=== PATIENT | male | born 1950 | race Caucasian/White ===

== ENCOUNTER 2018-04-07 05:08 | Observation (INO) ==
--- NOTE | 2018-03-31 14:33 | PAT Medication Instructions ---
Medication Instructions Date of Service March 31, 2018 Home Medications dutasteride [Avodart] 0.5 mg PO QAM emtricitabine [Emtriva] 200 mg PO QAM etravirine [Intelence] 100 mg PO BID hydrochlorothiazide 25 mg PO QAM psyllium 1 tbsp PO HS raltegravir [Isentress] 400 mg PO BID solifenacin [Vesicare] 10 mg PO QAM sulindac 200 mg PO BID terazosin 5 mg PO HS ASK your surgeon for instructions sulindac 200 mg PO BID ASK your prescriber and surgeon emtricitabine [Emtriva] 200 mg PO QAM etravirine [Intelence] 100 mg PO BID raltegravir [Isentress] 400 mg PO BID DO NOT take the morning of surgery hydrochlorothiazide 25 mg PO QAM Take morning of surgery With a small sip of water, OTHERWISE NOTHING TO EAT OR DRINK AFTER MIDNIGHT: dutasteride [Avodart] 0.5 mg PO QAM solifenacin [Vesicare] 10 mg PO QAM Take evening before surgery psyllium 1 tbsp PO HS terazosin 5 mg PO HS Other Notes If you have any questions please call us at [phone] or [phone] or [phone] or [phone]
--- NOTE | 2018-03-31 16:03 | Anesthesiology Consultation ---
Date of Service March 31, 2018 Assessment & Plan Plan: - Mivacurium allergy of hives per records-- patient denies Chart Review Chart Review: Acceptable Risk for Surgery and Patient seen in Pre Admission Testing Teaching & Discussion Pre-Anesthesia Teaching/Discussion Notes: Instructed NPO after midnight before surgery,except medications with 15 cc of water. Medication instructions provided according to the PAT guidelines. History Surgery Operation Date: 04/07/18 07:15 Proposed Procedures p Transurethral Resection Prostate - Yohan Belle II, DO Height/Weight Height: 5 ft 9 in Weight: 85.4 kg Allergies Allergy/AdvReac Type Severity Reaction Status Date / Time Penicillins Allergy Mild HIVES Verified 03/28/18 12:19 erythromycin base Allergy Unknown Hives Verified 03/28/18 12:19 mivacurium Allergy HIVES PER Verified 03/31/18 16:08 RECORDS- PATIENT DENIES nabumetone AdvReac Unknown UNKNOWN Verified 03/28/18 12:19 DISPERMOX AdvReac Unknown UNKNOWN Uncoded 01/11/14 18:20 Medications Home Medications Medication Instructions Recorded Confirmed Last Taken dutasteride [Avodart] 0.5 mg PO QAM 03/28/18 03/28/18 Unknown emtricitabine [Emtriva] 200 mg PO QAM 03/28/18 03/28/18 Unknown etravirine [Intelence] 100 mg PO BID 03/28/18 03/28/18 Unknown hydrochlorothiazide 25 mg PO QAM 03/28/18 03/28/18 Unknown psyllium 1 tbsp PO HS 03/28/18 03/28/18 Unknown raltegravir [Isentress] 400 mg PO BID 03/28/18 03/28/18 Unknown solifenacin [Vesicare] 10 mg PO QAM 03/28/18 03/28/18 Unknown sulindac 200 mg PO BID 03/28/18 03/28/18 Unknown terazosin 5 mg PO HS 03/28/18 03/28/18 Unknown Past Family History Family History Brother Family history of diabetes mellitus Sister Family history of diabetes mellitus Father Family history of diabetes mellitus Past Anesthesia History No Hx of Anesthesia Complications and No Family Hx of Anesthesia Complications Mivacurium reaction of hives per records-- patient denies History of PONV No Motion Sickness Screening History of Motion Sickness: No Social History Smoking Status: Former smoker Smoking End Date: QUIT 30 YEARS AGO Hx Alcohol Use: Yes Alcohol type: wine alcohol intake frequency: holidays/special occasions only Hx Substance Use: No Substance Use Type Other:: REMOTE HX COCAINE ABUSE 30 YEARS AGO Exercise / Class Metabolic Activity II 4-5 Yardwork/Stairs/Walk up hill Review of Systems Patient denies chest pain, shortness of breath, dyspnea on exertion, cough, wheezing, palpitations. Physical Exam Vital Signs VITALS BP 131/86 P 75 TEMP 97.6 SP02 98%RA RESP 18 Full neck and c-spine range of motion. Full TMJ range of motion. TMD 3 finger breaths Mallampati Score 1 Dentition: upper front cap; poor dentition Lungs: clear throughout to auscultation Cardiac: regular rate and rhythm, no murmurs noted Spine: normal Carotid arteries: negative bruit Extremities: no edema Testing Electrocardiogram Date: 03/31/18 Findings: + NSR @ (70) Chest X-Ray Date: 03/31/18 Findings: + NAD Laboratory Results 03/31/18 16:19 03/31/18 16:19 Urine Color Yellow 03/31/18 16:19 Urine Appearance Clear (Clear) 03/31/18 16:19 Urine pH 5.0 (4.5-7.5) 03/31/18 16:19 Ur Specific [place] 1.018 (1.000-1.030) 03/31/18 16:19 Urine Protein Negative (Negative) 03/31/18 16:19 Urine Glucose (UA) Negative (Negative) 03/31/18 16:19 Urine Ketones Negative (Negative) 03/31/18 16:19 Urine Nitrite Negative (Negative) 03/31/18 16:19 Ur Leukocyte Esterase Negative (Negative) 03/31/18 16:19
--- NOTE | 2018-03-31 17:05 | XRay Report ---
XR chest Pre-admission PA/Lat HISTORY: 67 years-old Male pat preoperative exam. No acute chest complaints COMPARISON: Chest radiograph 03/03/2015 TECHNIQUE: PA and lateral views of the chest FINDINGS: Cardiomediastinal and hilar silhouettes are within normal limits. No pneumothorax, pleural effusion, focal airspace consolidation or overt pulmonary edema. Degenerative changes of the shoulders and spin e. IMPRESSION: No acute process. The above report was generated using voice recognition software. It may contain grammatical, syntax o r spelling errors. Electronically signed by: Darrell Pearce M.D. 03/31/2018 5:04 PM
[2018-03-31 17:19] LABS: Appearance Urine Clear (Clear); Bilirubin Urine Negative (Negative); Color Urine Yellow; Glucose Urine UA Negative (Negative); Ketones Urine Negative (Negative); Leukocyte Esterase Urine Negative (Negative); Nitrite Urine Negative (Negative); Protein Urine Negative (Negative); Specific Gravity Urine 1.018 (1.000-1.030); Urobilinogen Urine Negative (Negative)
[2018-03-31 17:44] LABS: Basophils # (auto) 0.01 K/uL (0-0.2); Basophils % (auto) 0.2 %; Eosinophils # (auto) 0.07 K/uL (0-0.5); Eosinophils % (auto) 1.1 %; Hematocrit (blood only) 44.6 % (42-52); Hemoglobin 15.7 g/dL (14.0-18.0); Immature Granulocytes # (auto) 0.01 K/uL (0.00-0.02); Immature Granulocytes % (auto) 0.2 %; Lymphocytes # (auto) 1.76 K/uL (1.2-3.4); Lymphocytes % (auto) 28.4 %; Mean Corpuscular Hgb Conc 35.2 g/dL (32-36); Mean Corpuscular Volume 94.1 fL (80-100); Mean Platelet Volume 12.3 fL (7.4-10.4); Monocytes # (auto) 0.33 K/uL (0.11-0.59); Monocytes % (auto) 5.3 %; Neutrophils # (auto) 4.02 K/uL (1.4-6.5); Neutrophils % (auto) 64.8 %; Platelet Count 194 K/uL (130-400); RDW Coefficient of Variation 12.6 % (11.5-14.5); RDW Standard Deviation 43.4 fL (36.4-46.3); Red Blood Count 4.74 M/uL (4.7-6.1)
[2018-03-31 17:53] LABS: Calcium 8.5 mg/dl (8.5-10.1); Creatinine Clr Calc Pharmacy 76.3 ml/min; Est GFR (African American) 89.7; Est GFR (Non-African American) 77.4; Potassium 3.6 mmol/L (3.5-5.1)
[2018-04-07] MEDS ORDERED: LR 15ML/HR IV SCH (06:00)
[2018-04-07] MEDS ORDERED: CEFAZOLIN 2000MG 2,000 MG/15 ML SYR IV SCH (06:00)
[2018-04-07] MEDS ORDERED: LIDOCAINE HCL 2% 2 ML VIAL/AMP(20MG/ML) INFIL ONE (06:48)
[2018-04-07] MEDS ORDERED: PROPOFOL IV EMULSION 10 MG/ML 20 ML VIAL IV ONE (06:48)
[2018-04-07] MEDS ORDERED: ONDANSETRON INJ 2 MG/ML 2 ML VIAL ONE (06:48)
[2018-04-07] MEDS ORDERED: raNITIdine HCl 25 MG/ML VIAL ONE (06:48)
[2018-04-07] MEDS ORDERED: fentaNYL citrate 100 MCG/2 ML VIAL ONE (06:49)
[2018-04-07] MEDS ORDERED: MIDAZOLAM HCL 1 MG/ML 2ML VIAL ONE (06:49)
--- NOTE | 2018-04-07 06:52 | History & Physical Bridge Note ---
Date of Service April 07, 2018 History & Physical Bridge Note I have examined the patient, reviewed the History & Physical and in the interval since the performance of the History & Physical I have noted the following changes of clinical significance: no changes noted
[2018-04-07] MEDS ORDERED: MoRPHine SULFATE 2 MG/ML CARP IV PRN (06:55)
[2018-04-07] MEDS ORDERED: ONDANSETRON INJ 2 MG/ML 2 ML VIAL IV PRN ×2 (06:55→07:09)
[2018-04-07] MEDS ORDERED: OXYCODONE/ACETAMINOPHEN 5mg/325mg TAB PO PRN (06:55)
[2018-04-07] MEDS ORDERED: HYDROmorphone INJ 1 MG/ML SYRINGE IV PRN (07:09)
[2018-04-07] MEDS ORDERED: ePHEDrine sulfate 50 MG/ML AMP IV PRN (07:09)
[2018-04-07] MEDS ORDERED: ATROPINE SULFATE 0.1 MG/ML 10ML SYR IV PRN (07:09)
[2018-04-07] MEDS ORDERED: BELLADONNA/OPIUM SUPP 60 MG SUPP PR ONE (07:25)
[2018-04-07] MEDS: fentaNYL citrate 100 MCG/2 ML VIAL IV PRN ×2 (08:46→08:57)
--- NOTE | 2018-04-07 08:46 | Operative Report ---
Post Operative Report Pre & Post Diagnosis Operation Date: 04/07/18 07:15 Pre-Op Diagnosis: Benign Prostatic Hyperplasia with Urinary Obstruct Post-Op Diagnosis: Benign Prostatic Hyperplasia with Urinary Obstruct Procedure Operation Date: 04/07/18 07:15 Actual Procedures p Transurethral Resection Prostate(Not Applicable) - Yohan Belle II, DO Surgeon Yohan Belle, II, DO Audio Production Manager None Estimated Blood Loss 8 Findings Consistent with Post-Op Diagnosis Large median lobe of prostate very prominent on right with obstruction. Specimens Prostate resection chips Drains [address] Anesthesia Type General Complications none Disposition Disposition: Recovery Room Indications Large obstruction of bladder secondary to large median lobe with long history of bladder/lower urinary issues. Risks and benefits discussed. Description of Procedure Patient was consented and brought back to the operating room. Patient was placed under anesthesia in the supine position and moved to the dorsal lithotomy position. Patient was prepped and draped in the regular sterile fashion. A time out was completed. A 30degree Cystoscope was placed into the bladder and the entire bladder was examined. The UO's were identified. The entire prostate and bladder neck was assessed. The important landmarks such as the veru and bladder neck were assessed. The resection scope was then placed with a bipolar loop. The 5 and 7 o'clock positions were assessed and resection was taken to form a channel at each area back to the veru. The channel created, the resection was taken over the median lobe to create a good working channel. The bulk of the median lobe was removed. All bleeding was controlled with cautery. At this point, resection was taken down to the capsule at the 11 o'clock position and resection was moved countclockwise down to the 7 o'clock position. This was repeated on the left frm the 1 o'clock to the 5 o'clock. The anterior prostatic channel was assessed and some resection completed. Bleeding was controlled the entire process. The excess resected tissues were removed and sent for analysis. A final assessment was completed. NO bleeding or residual excess adenoma was appreciated. The scope was removed. A [address] catheter was placed and set to irrigation. Good drainage was appreciated. The patient was cleaned, aroused from anesthesia , and transferred to the pacu in stable condition having tolerated the procedure well with no complications. I was present and participated in all aspects of the procedure. The patient will be monitored in the PACU until transferred. I attest to the content of the Intraoperative Record and any orders documented therein. Any exceptions are noted below.
--- NOTE | 2018-04-07 09:10 | Anesthesiology Progress Note ---
Date of Service April 07, 2018 Anesthesia Post Procedure Vital Signs Vital Signs: Temp Pulse Pulse Resp BP BP Pulse Ox 04/07/18 09:05 75 17 148/97 H 98 04/07/18 08:55 72 14 158/100 H 99 04/07/18 08:45 75 16 166/97 H 98 04/07/18 08:36 36.7 C 79 24 145/101 H 100 04/07/18 05:42 36.6 C 84 18 167/101 H 100 Pain Intensity Penis: Pain Intensity: 3 Notes Mental Status: alert / awake / arousable and participated in evaluation Patient Amnestic to Procedure: Yes Nausea / Vomiting: adequately controlled Pain: adequately controlled Airway Patency, RR, SpO2: stable & adequate BP & HR: stable & adequate Hydration State: stable & adequate Anesthetic Complications: no major complications apparent and Pt Satisfied with anesthetic care
[2018-04-07] MEDS: SODIUM CHLORIDE 0.9% 1000ML 1,000 ML IV SCH ×2 (10:27→20:41)
[2018-04-07] MEDS ORDERED: OXYBUTYNIN CHLORIDE 5 MG TAB PO PRN (10:47)
[2018-04-07] MEDS: SULINDAC 200 MG TAB PO SCH ×2 (11:53→20:42)
[2018-04-07] MEDS: hydroCHLOROthiazide 25 MG TAB PO SCH (11:53)
[2018-04-07] MEDS: DOCUSATE SODIUM 100 MG CAP PO SCH ×2 (11:54→20:42)
[2018-04-07] MEDS: RALTEGRAVIR POTASSIUM 400 MG TAB PO SCH ×2 (11:54→20:41)
[2018-04-07] MEDS: HYDROCODONE/ACETAMOPHEN 5/325MG TAB PO PRN ×2 (12:36→19:29)
[2018-04-07] MEDS: ETRAVIRINE PO SCH ×2 (13:35→20:43)
[2018-04-07] MEDS: EMTRICITABINE 200 MG PO SCH (13:36)
[2018-04-07] MEDS: CEFAZOLIN 2000MG 2,000 MG/15 ML SYR IV SCH ×2 (14:37→22:16)
[2018-04-07 14:50] LABS: Hematocrit (blood only) 42.8 % (42-52); Hemoglobin 15.2 g/dL (14.0-18.0); Mean Corpuscular Hgb Conc 35.5 g/dL (32-36); Mean Corpuscular Volume 94.1 fL (80-100); Mean Platelet Volume 11.3 fL (7.4-10.4); Platelet Count 170 K/uL (130-400); RDW Coefficient of Variation 12.5 % (11.5-14.5); Red Blood Count 4.55 M/uL (4.7-6.1); White Blood Count 5.91 K/uL (4.8-10.8)
[2018-04-07 15:30] LABS: Albumin Level 3.6 gm/dl (3.4-5.0); BUN Creatinine Ratio 14.8 (10-20); Bilirubin,Total 0.6 mg/dl (0.2-1); Calcium 7.9 mg/dl (8.5-10.1); Est GFR (African American) 87.6; Est GFR (Non-African American) 75.5; Potassium 3.6 mmol/L (3.5-5.1)
[2018-04-07 15:32] LABS: Albumin Globulin Ratio 1.1 (0.9-2); Globulin 3.3 gm/dl (2.5-4.0); Total Protein 6.9 gm/dl (6.4-8.2)
[2018-04-07] MEDS ORDERED: LORATADINE 10 MG TAB PO ONE (17:01)
[2018-04-07] MEDS ORDERED: LORazepam 0.5 MG TAB PO PRN (17:02)
[2018-04-07] MEDS ORDERED: TERAZOSIN HCL 5 MG CAP PO SCH (21:00)
[2018-04-07] MEDS ORDERED: PSYLLIUM 58.6% POWDER PACKET PO SCH (21:00)
[2018-04-08] MEDS: CEFAZOLIN 2000MG 2,000 MG/15 ML SYR IV SCH (06:28)
[2018-04-08] MEDS: HYDROCODONE/ACETAMOPHEN 5/325MG TAB PO PRN ×2 (06:43→12:29)
--- NOTE | 2018-04-08 08:46 | Anesthesiology Progress Note ---
Date of Service April 08, 2018 Anesthesia Post Procedure Vital Signs Vital Signs: Temp Pulse Pulse Resp BP Pulse Ox 04/08/18 07:49 36.4 C L 73 18 146/93 H 97 04/08/18 03:00 36.8 C 64 18 147/87 H 96 04/07/18 23:16 36.9 C 57 L 18 144/85 H 97 04/07/18 20:40 62 18 153/89 H 97 04/07/18 15:16 36.2 C L 65 18 147/90 H 98 04/07/18 12:52 69 16 151/91 H 98 04/07/18 11:28 65 16 153/92 H 98 04/07/18 10:30 36.4 C L 69 16 151/88 H 98 04/07/18 10:02 36.4 C L 61 16 155/94 H 94 04/07/18 09:30 36.3 C L 69 18 153/99 H 97 04/07/18 09:15 36.2 C L 71 19 149/97 H 99 04/07/18 09:05 75 17 148/97 H 98 04/07/18 08:55 72 14 158/100 H 99 Pain Intensity Penis: Pain Intensity: 4 Notes Mental Status: alert / awake / arousable Patient Amnestic to Procedure: Yes Nausea / Vomiting: adequately controlled Pain: adequately controlled Airway Patency, RR, SpO2: stable & adequate BP & HR: stable & adequate Hydration State: stable & adequate Anesthetic Complications: no major complications apparent
[2018-04-08] MEDS: hydroCHLOROthiazide 25 MG TAB PO SCH (09:24)
[2018-04-08] MEDS: RALTEGRAVIR POTASSIUM 400 MG TAB PO SCH (09:24)
[2018-04-08] MEDS: SULINDAC 200 MG TAB PO SCH (09:24)
[2018-04-08] MEDS: ETRAVIRINE PO SCH (09:25)
[2018-04-08] MEDS: DOCUSATE SODIUM 100 MG CAP PO SCH (09:25)
[2018-04-08] MEDS: EMTRICITABINE 200 MG PO SCH (09:25)
[2018-04-08] MEDS: SODIUM CHLORIDE 0.9% 1000ML 1,000 ML IV SCH (09:56)
--- NOTE | 2018-04-08 11:13 | Urology Progress Note ---
Date of Service April 08, 2018 Assessment & Plan (1) Enlarged prostate: POD #1 s/p TURP Doing very well. CBI clamped at 1030. Okay to d/c after lunch as long as tolerating catheter well off CBI. Keep catheter, plan for outpatient management by our office. Subjective 67yo M POD #1 S/P TURP. Patient is doing very well today. No family at bedside at time of evaluation. Pain well controlled with PO. Some suprapubic discomfort and mild bladder spasms. Tolerated regular breakfast without nausea or vomiting. Review of Systems All systems reviewed & are unremarkable except as noted in HPI & below Physical Exam 2 Vital Signs (Past 24 Hours): Last Vital Signs Temp 36.4 C L 04/08/18 07:49 Pulse 73 04/08/18 07:49 Resp 18 04/08/18 07:49 BP 146/93 H 04/08/18 07:49 Pulse Ox 97 04/08/18 07:49 Physical Exam: A&Ox3 RRR Abd soft Mild suprapubic tenderness CBI draining clear, no clots
--- NOTE | 2018-04-09 13:25 | Discharge Summary ---
Date of Service April 18, 2018 Admission HPI Per Admitting Provider Admitted for TURP. See H&P for full report. Admission Exam Per Admitting Provider See H&P Principal Diagnosis BPH With obstruction and retention Discharge Exam ENMT Mouth: no TMJ abnormality, no TMJ clicking and no dentition abnormality Mallampati Class: II Neck normal visual inspection and + facial hair Respiratory normal respiratory effort Auscultation: lungs clear to auscultation bilaterally Cardiovascular Rate/Rhythm: regular rate and regular rhythm Musculoskeletal Spine: + pain with cervical ROM; normal cervical ROM Neurologic moves all extremities Psychiatric Orientation: alert and oriented x [address] draining clear yellow Discharge Data Allergies Allergy/AdvReac Type Severity Reaction Status Date / Time erythromycin base Allergy Unknown Hives Verified 04/07/18 05:35 mivacurium Allergy HIVES PER Verified 04/07/18 05:35 RECORDS- PATIENT DENIES nabumetone AdvReac Unknown UNKNOWN Verified 04/07/18 05:35 DISPERMOX AdvReac Unknown UNKNOWN Uncoded 04/07/18 05:35 Procedures Performed Operation Date: 04/07/18 07:15 Actual Procedures p Transurethral Resection Prostate(Not Applicable) - Yohan Belle II, DO Hospital Course (1) Enlarged prostate: POD #1 s/p TURP Doing very well. CBI clamped at 1030. Okay to d/c after lunch as long as tolerating catheter well off CBI. Keep catheter, plan for outpatient management by our office. Total Time Total Time Spent Total Time Spent (In Minutes): 10 minutes Total Time Includes: Examination of the Patient, Discharge Planning, Medication Reconciliation and Other Discharge Plan Discharge Items Patient Disposition: Home - Self-Care Reason For Visit: Benign Prostatic Hyperplasia with Urinary Obstruct Discharge Diagnosis: BPH with urinary obstruction Discharge Goals: Decrease discomfort and Improve function Activity: Resume your previous activity Bathing Comment: clean catheter insertion site twice daily with warm soapy water Sexual Activity: Wait until after follow-up appointment Exercise/Sports: Gradually increase as tolerated Driving/Machine Use Comment: no driving with pain medication onboard. Non-emergency contact: Urologist Call non-emergency contact if: you have any medication questions, your symptoms worsen, your pain is not controlled, your pain is worsening, your pain is unusual for you, your pain is concerning for you, you have a fever and your temperature is above 101.5 Follow-up/Referrals: Jose Thornton [Primary Care Provider] - Diet: Regular Addtl Provider Instructions: Johnson care instructions post operatively. Plan to keep for 7-10 days. May have bleeding. May have pelvic discomfort. Call if any issues or concerns. [facility] Urology office [phone]. Prescriptions: New hydrocodone-acetaminophen [[place]] 5-325 mg tablet 1 tab PO Q6H PRN (Reason: pain (scale score 7-10)) Qty: 10 RF: 0 docusate sodium [Colace] 100 mg capsule 100 mg PO BID PRN (Reason: constipation) Qty: 60 RF: 0 oxybutynin chloride 5 mg tablet 5 mg PO TID PRN (Reason: bladder spasms) Qty: 20 RF: 0 Continue terazosin 5 mg Capsule 5 mg PO HS RF: 0 psyllium Powder 1 tbsp PO HS RF: 0 hydrochlorothiazide 25 mg Tablet 25 mg PO QAM RF: 0 sulindac 200 mg Tablet 200 mg PO BID RF: 0 dutasteride [Avodart] 0.5 mg Capsule 0.5 mg PO QAM RF: 0 emtricitabine [Emtriva] 200 mg Capsule 200 mg PO QAM RF: 0 raltegravir [Isentress] 400 mg Tablet 400 mg PO BID RF: 0 etravirine [Intelence] 100 mg Tablet 100 mg PO BID RF: 0 Discontinued solifenacin [Vesicare] 10 mg Tablet 10 mg PO QAM RF: 0 Visit Report Forms: [facility] Stand-Alone Forms: Opioid Pain Management Discharge Orders: Discharge Order (Routine); Ordered 04/08/18 Ordered By: Mecca Cordova Admission Data Admit Date/Time: 04/07/18 06:55 Attending Provider: Yohan Belle II Admit Provider: Yohan Belle II Primary Care Provider: Jose Thornton Service: Surgical Services Other Interventions: Discharge Summary Assessment (RN) Last Done: 04/08/18 12:15 DC Date/Time DO NOT enter until pt leaves facility: 04/08/18 14:57
== END 2018-04-08 14:57 | disposition home or self-care (01) ==
LOC: ASU 05:08 → 3N 05:08